=== PATIENT | female | born 1950 | race Caucasian/White ===

== ENCOUNTER 2016-03-31 09:28 | Emergency (ER) | payer OTHER ==
[2016-03-31 09:59] VITALS: BP 131/56
--- NOTE | 2016-03-31 10:19 | UC ---
Respiratory Complaint HPI - HPI Summary HPI Summary: 65 F w/ PMH of asthma and presents with cough. she has had the cough since beginning of March and was started on inhalers. Was placed on doxycycline said improved then when stopped got worst. [facility] and given doxycycline says sinus symptoms went away for 10 days but still coughing and wheezing. last dose 03/23. has been taking flonase, flovent. She denies any chest pain or SOB. She denies any fever or sinus congestion. - History of Current Complaint Chief Complaint: UC Stated Complaint: COUGH WITH ASHTMA Time Seen by Provider: 03/31/16 10:03 - Allergies/Home Medications Allergies/Adverse Reactions: Allergies Allergy/AdvReac Type Severity Reaction Status Date / Time Adhesive Tape Allergy Intermediate SKIN Verified 03/31/16 09:50 BLISTERS Cefaclor [From Ceclor] Allergy Intermediate Itching Verified 03/31/16 09:50 Codeine Allergy Intermediate FIELD MECHANICAL METER TESTER Verified 03/31/16 09:50 STIMULANT Sulfamethoxazole Allergy Intermediate Itching Verified 03/31/16 09:50 w/Trimethoprim [From Septra] Terconazole [From Terazol] Allergy Intermediate VAGINAL Verified 03/31/16 09:50 YEAST INFECTION Diclofenac [From Voltaren] Allergy Rash Verified 03/31/16 09:50 Salmeterol [From Advair] Allergy Rash Verified 03/31/16 09:50 DECONGESTANTS Allergy Intermediate FIELD MECHANICAL METER TESTER Uncoded 03/31/16 09:50 STIMULANT Home Medications: Home Medications Fluticasone NASAL SPRAY 50MCG* [Flonase NASAL SPRAY 50MCG*] 2 spray BOTH NARES DAILY 03/31/16 [History Confirmed 03/31/16] PMH/Surg Hx/FS Hx/Imm Hx Endocrine History Of: Denies: Diabetes, Thyroid Disease Cardiovascular History Of: Denies: Cardiac Disorders, Hypertension Respiratory History Of: Reports: Asthma Denies: COPD GI/ History Of: Denies: Ulcer - Surgical History Surgical History: Yes Surgery Procedure, Year, and Place: T&A 1962 - Family History Known Family History: Negative: Cardiac Disease - Social History Alcohol Use: None Substance Use Type: None Smoking Status (MU): Former Smoker Have You Smoked in the Last Year: No When Did the Patient Quit Smoking/Using Tobacco: 1990 - Immunization History Most Recent Influenza Vaccination: fall 2015 Most Recent Tetanus Shot: UTD Review of Systems Constitutional: Negative ENT: Negative Respiratory: Cough Cardiovascular: Negative Gastrointestinal: Negative All Other Systems Reviewed And Are Negative: Yes Physical Exam Triage Information Reviewed: Yes Appearance: Well-Appearing Vital Signs: Initial Vital Signs Temp 97.7 F 03/31/16 09:53 Pulse 67 03/31/16 09:53 Resp 16 03/31/16 09:53 BP 131/56 03/31/16 09:53 Pulse Ox 97 03/31/16 09:53 Vital Signs Reviewed: Yes Eyes: Positive: Conjunctiva Clear ENT: Positive: Normal ENT inspection, Pharynx normal, TMs normal Neck: Positive: Supple, Nontender, No Lymphadenopathy Respiratory: Positive: Chest non-tender, Lungs clear, Other: - neg egophony. Negative: Wheezing Cardiovascular: Positive: RRR UC Diagnostic Evaluation - Laboratory O2 Sat by Pulse Oximetry: 97 Respiratory Course/Dx - Course Course Of Treatment: 65F presents with cough for 3 weeks, has been using flovent , flonase, and inhaler, no sign of conslidation on exam and would expect symptoms to have gotten worst if has pneumonia, will had oral steriod and tessalon and explained bronchitis can last up to 4 weeks, advised to follow up with primary, patient agrees with plan - Differential Dx/Diagnosis Differential Diagnosis/HQI/PQRI: Bronchitis, Influenza, Lower Resp Infection Provider Diagnoses: bronchitis Discharge - Discharge Plan Condition: Stable Disposition: HOME Prescriptions: Benzonatate CAP* [Tessalon CAP*] 100 mg PO TID #21 cap predniSONE TAB* [Deltasone TAB*] 40 mg PO DAILY #5 tab Patient Education Materials: Acute Bronchitis (ED) Referrals: Dalila Sewell [Primary Care Provider] - Additional Instructions: Use inhaler every 4-6 hours as needed for cough Use Tessalon three times a day for cough Take steriod once a day for 5 days Continue flonase and flovent as prescribed Use humidifier or place warm bowls of water around the room Cough can last up to 4 weeks Follow up with primary care physician in 5 days Return to ED if develop chest pain or shortness of breath or any new or worsening symptoms
== END 2016-03-31 10:41 | disposition home or self-care (01) ==
LOC: UCEAST 09:28
DX: J45.909 Unspecified asthma, uncomplicated (principal); Z88.5 Allergy status to narcotic agent; Z88.1 Allergy status to other antibiotic agents; Z88.2 Allergy status to sulfonamides; Z88.8 Allergy status to other drugs, medicaments and biological substances; Z87.891 Personal history of nicotine dependence
CPT/HCPCS: 99212; G0463

== ENCOUNTER 2017-01-12 13:34 | Emergency (ER) | payer OTHER ==
--- NOTE | 2017-01-12 14:21 | UC ---
Respiratory Complaint HPI - History of Current Complaint Pain Intensity: 0 <Corbin Flower - Last Filed: 01/12/17 21:52> - HPI Summary HPI Summary: Pt presents with sinus congestion for 3 weeks. She was on a Zpak and felt better a few days after finishing the course. Now has continued sinus congestion , but has developed wheezing, SOB, and a cough. She uses at home flovent inhaler , and recently has started using her albuterol inhaler as well. Has been taking OTC cold medicine with no relief. Has felt feverish at times, but has not taken her temp. Denies chills, chest pain, ST, N/V/D/C. - History of Current Complaint Severity Initially: Mild Severity Currently: Moderate Character: Cough: Nonproductive Aggravating Factors: Deep Breaths Associated Signs And Symptoms: Positive: Fever, URI <Rogers Whitley - Last Filed: 01/12/17 21:58> - History of Current Complaint Chief Complaint: UCRespiratory Stated Complaint: ASTHMA Time Seen by Provider: 01/12/17 14:20 - Allergies/Home Medications Allergies/Adverse Reactions: Allergies Allergy/AdvReac Type Severity Reaction Status Date / Time Adhesive Tape Allergy Intermediate SKIN Verified 01/12/17 14:15 BLISTERS Cefaclor [From Ceclor] Allergy Intermediate Itching Verified 01/12/17 14:15 Codeine Allergy Intermediate LAUNDRY ROUTE DRIVER Verified 01/12/17 14:15 STIMULANT Sulfamethoxazole Allergy Intermediate Itching Verified 01/12/17 14:15 w/Trimethoprim [From Septra] Terconazole [From Terazol] Allergy Intermediate VAGINAL Verified 01/12/17 14:15 YEAST INFECTION Diclofenac [From Voltaren] Allergy Rash Verified 01/12/17 14:15 Salmeterol [From Advair] Allergy Rash Verified 01/12/17 14:15 DECONGESTANTS Allergy Intermediate LAUNDRY ROUTE DRIVER Uncoded 01/12/17 14:15 STIMULANT PMH/Surg Hx/FS Hx/Imm Hx Respiratory History: Asthma <Corbin Flower - Last Filed: 01/12/17 21:52> Previously Healthy: Yes Respiratory History: Asthma - Surgical History Surgical History: Yes Surgery Procedure, Year, and Place: T&A 1962 - Family History Known Family History: Negative: Cardiac Disease - Social History Occupation: Retired Lives: With Family Alcohol Use: None Substance Use Type: None Smoking Status (MU): Former Smoker Have You Smoked in the Last Year: No When Did the Patient Quit Smoking/Using Tobacco: 1990 - Immunization History Most Recent Influenza Vaccination: fall 2015 Most Recent Tetanus Shot: UTD <Rogers Whitley - Last Filed: 01/12/17 21:58> Review of Systems Constitutional: Fever Skin: Negative Eyes: Negative ENT: Sinus Congestion Respiratory: Shortness Of Breath, Cough Cardiovascular: Negative Gastrointestinal: Negative Neurological: Negative All Other Systems Reviewed And Are Negative: Yes <Rogers Whitley - Last Filed: 01/12/17 21:58> Physical Exam Vital Signs: Initial Vital Signs Temp 97.2 F 01/12/17 14:08 Pulse 85 01/12/17 14:08 Resp 18 01/12/17 14:08 BP 160/58 01/12/17 14:08 Pulse Ox 96 01/12/17 14:08 <Corbin Flower - Last Filed: 01/12/17 21:52> Triage Information Reviewed: Yes Appearance: Well-Appearing, Well-Nourished Vital Signs: Initial Vital Signs Temp 97.2 F 01/12/17 14:08 Pulse 85 01/12/17 14:08 Resp 18 01/12/17 14:08 BP 160/58 01/12/17 14:08 Pulse Ox 96 01/12/17 14:08 Vital Signs Reviewed: Yes Eyes: Positive: Conjunctiva Clear ENT: Positive: Normal ENT inspection, Hearing grossly normal, Pharynx normal, TMs normal, Uvula midline. Negative: Pharyngeal erythema, Nasal congestion, Nasal drainage, TM bulging, TM dull, TM red, Tonsillar swelling, Tonsillar exudate, Sinus tenderness Neck: Positive: Supple, Nontender, No Lymphadenopathy Respiratory: Positive: Chest non-tender, No respiratory distress, No accessory muscle use, Decreased breath sounds - Throughout, Wheezing - Throughout Cardiovascular: Positive: RRR, No Murmur, Pulses Normal Neurological: Positive: Alert Psychological: Positive: Age Appropriate Behavior <Rogers Whitley - Last Filed: 01/12/17 21:58> UC Diagnostic Evaluation - Laboratory O2 Sat by Pulse Oximetry: 96 <Rogers Whitley Last Filed: 01/12/17 21:58> Respiratory Course/Dx - Course Course Of Treatment: Nebulizer tx with albuterol was given - pt experienced moderate relief and was able to breathe easier. Lungs sounds improved with significantly less wheezing throughout. CXR negative. Use your at home albuterol inhaler 2 puffs every 4-6 hours for the next 3 days. Continue flovent as rx'd - Differential Dx/Diagnosis Differential Diagnosis/HQI/PQRI: Asthma, Bronchitis, CHF, Influenza, Sinusitis Provider Diagnoses: asthma exacerbation <Rogers Whitley - Last Filed: 01/12/17 21:58> Discharge <Corbin Flower - Last Filed: 01/12/17 21:52> <Rogers Whitley - Last Filed: 01/12/17 21:58> - Discharge Plan Condition: Stable Disposition: HOME Patient Education Materials: Asthma (ED) Referrals: Yannick ARZATE,Dalila Petty [Primary Care Provider] - Additional Instructions: 1) Continue using your flovent as prescribed. 2) Use the albuterol inhaler 2 puffs every 4 hours for the next 3 days 3) Plain Mucinex over the counter as directed. If you develop fever, worsening SOB, chest pain, new or worsening symptoms - please call our office or go to ED. Your blood pressure was high at today's visit - please see your PCP within 4 weeks for recheck and re-evaluation.
--- NOTE | 2017-01-12 14:51 | RAD ---
HISTORY: Shortness of breath COMPARISONS: February 01, 2015 VIEWS: 4: Frontal dual-energy and lateral views of the chest. FINDINGS: CARDIOMEDIASTINAL SILHOUETTE: The cardiomediastinal silhouette is normal. SARA: The sara are normal. PLEURA: The costophrenic angles are sharp. No pleural abnormalities are noted. LUNG PARENCHYMA: The lungs are clear. ABDOMEN: The upper abdomen is clear. There is no subphrenic gas. BONES AND SOFT TISSUES: Mild degenerative changes are noted OTHER: None. IMPRESSION: NO ACTIVE CARDIOPULMONARY DISEASE.
[2017-01-12] MEDS ORDERED: Albuterol (2.5 MG) 0.5 % CONC 2.5 MG/0.5 ML NEB.SOLN (ICU and ED only) INH ONE (15:09)
[2017-01-12] MEDS ORDERED: Albuterol 2.5 MG/3 ML NEB.SOL* (0.083%) INH ONE (15:15)
[2017-01-12 15:47] VITALS: BP 131/71
== END 2017-01-12 15:52 | disposition home or self-care (01) ==
LOC: UCEAST 13:34
DX: J45.901 Unspecified asthma with (acute) exacerbation (principal); Z88.1 Allergy status to other antibiotic agents; Z88.5 Allergy status to narcotic agent; Z88.2 Allergy status to sulfonamides; Z88.8 Allergy status to other drugs, medicaments and biological substances; Z88.6 Allergy status to analgesic agent; Z87.891 Personal history of nicotine dependence
CPT/HCPCS: 71020; 99212; G0463; J7611

== ENCOUNTER 2017-01-20 09:49 | Emergency (ER) | payer OTHER ==
[2017-01-20] MEDS ORDERED: Albuterol 2.5 MG/3 ML NEB.SOL* (0.083%) INH ONE (12:26)
--- NOTE | 2017-01-20 12:47 | RAD ---
HISTORY: Progressively worse cough COMPARISONS: January 12, 2017 VIEWS: 4: Frontal dual-energy and lateral views of the chest. FINDINGS: CARDIOMEDIASTINAL SILHOUETTE: The cardiomediastinal silhouette is normal. SARA: The sara are normal. PLEURA: The costophrenic angles are sharp. No pleural abnormalities are noted. LUNG PARENCHYMA: The lungs are clear. ABDOMEN: The upper abdomen is clear. There is no subphrenic gas. BONES AND SOFT TISSUES: No bone or soft tissue abnormalities are noted. OTHER: None. IMPRESSION: NO ACTIVE CARDIOPULMONARY DISEASE.
[2017-01-20 13:33] VITALS: BP 141/59
--- NOTE | 2017-01-25 21:56 | ED ---
Ruthann Page Gabriel, scribed for Poppy Bolanos MD on 01/20/17 at 1226 . Respiratory - HPI Summary HPI Summary: This patient is a 66 year old F presenting to [facility] with a chief complaint of a persistent cough, wheeze x approx 3 weeks. Seen in [facility] on 01/12. Pt has taken Mucinex since and has been taking albuterol inhaler 3 times daily. Also dx'd with strep throat at that time. Cough / wheeze symptoms are worse while lying down. Has completed azithromycin, not much better. Does not have a nebulizer at home. No rash. No sob / cp except with cough. No GI sx reported. No rash reported. - History of Current Complaint Chief Complaint: UCRespiratory Stated Complaint: WEEZING,COUGH Time Seen by Provider: 01/20/17 12:13 Hx Obtained From: Patient Onset/Duration: Still Present Timing: Constant Character: Wheezing, Cough (Nonproductive), Orthopnea - Allergy/Home Medications Allergies/Adverse Reactions: Allergies Allergy/AdvReac Type Severity Reaction Status Date / Time Adhesive Tape Allergy Intermediate SKIN Verified 01/20/17 10:04 BLISTERS Cefaclor [From Ceclor] Allergy Intermediate Itching Verified 01/20/17 10:04 Codeine Allergy Intermediate CATTLE DIPPER Verified 01/20/17 10:04 STIMULANT Sulfamethoxazole Allergy Intermediate Itching Verified 01/20/17 10:04 w/Trimethoprim [From Septra] Terconazole [From Terazol] Allergy Intermediate VAGINAL Verified 01/20/17 10:04 YEAST INFECTION Diclofenac [From Voltaren] Allergy Rash Verified 01/20/17 10:04 Salmeterol [From Advair] Allergy Rash Verified 01/20/17 10:04 DECONGESTANTS Allergy Intermediate CATTLE DIPPER Uncoded 01/20/17 10:04 STIMULANT Home Medications: Home Medications Guaifenesin 200 mg PO 01/20/17 [History] Pseudoephedrine-Guaifenesin [Mucinex D 60-600 mg] 1 tab PO 01/20/17 [History] PMH/Surg Hx/FS Hx/Imm Hx Previously Healthy: No Endocrine/Hematology History: Denies: Hx Diabetes, Hx Thyroid Disease Cardiovascular History: Denies: Hx Hypertension Respiratory History: Reports: Hx Asthma Denies: Hx Chronic Obstructive Pulmonary Disease (COPD) GI History: Denies: Hx Ulcer - Surgical History Surgery Procedure, Year, and Place: T&A 1962 Infectious Disease History: Yes Infectious Disease History: Reports: Hx Shingles - 12/2009 Denies: Hx Clostridium Difficile, Hx Hepatitis, Hx Human Immunodeficiency Virus (HIV), Hx of Known/Suspected MRSA, Hx Tuberculosis, History Other Infectious Disease, Traveled Outside the [place] in Last 30 Days - Family History Known Family History: Negative: Cardiac Disease - Social History Alcohol Use: None Substance Use Type: Reports: None Smoking Status (MU): Former Smoker Have You Smoked in the Last Year: No Review of Systems Constitutional: Negative Eyes: Negative ENT: Other - see hpi + congestion Cardiovascular: Negative Positive: Other - see hpi Gastrointestinal: Negative Genitourinary: Negative Musculoskeletal: Negative Skin: Negative Neurological: Negative Psychological: Normal All Other Systems Reviewed And Are Negative: Yes Physical Exam Triage Information Reviewed: Yes Vital Signs On Initial Exam: Initial Vitals Temp Pulse Resp BP Pulse Ox 97.5 F 86 18 145/67 97 01/20/17 10:00 01/20/17 10:00 01/20/17 10:00 01/20/17 10:00 01/20/17 10:00 Vital Signs Reviewed: Yes Appearance: Positive: Well-Nourished - sitting up. Conversing in full sentances. Looks tired but nad. Eyes: Positive: Normal ENT: Positive: TM dull, Uvula midline, Other - Tms dull bi laterally, Posterior pharynx mildly erythematous without sores, airway patent Neck: Positive: Supple, Nontender, No Lymphadenopathy Respiratory/Lung Sounds: Positive: Other - Bilateral rhonchi, exp wheeze R base. No rtx. BS present bilat. Cardiovascular: Positive: Normal - good general skin color, good capillary refill, RRR Abdomen Description: Positive: Nontender, No Organomegaly, Soft Bowel Sounds: Positive: Present Musculoskeletal: Positive: Normal, Strength/ROM Intact Neurological: Positive: Normal - nonfocal, grossly intact Psychiatric: Positive: Normal - conversing easily and appropriately Diagnostics - Vital Signs Vital Signs Temp Pulse Resp BP Pulse Ox 01/20/17 10:00 97.5 F 86 18 145/67 97 - Laboratory Lab Statement: Any lab studies that have been ordered have been reviewed, and results considered in the medical decision making process. - Radiology CXR Radiology Interpretation Completed By: Radiologist - No active cardiopulmonary disease. physician has reviewed this report and agrees. Disposition - Course Course Of Treatment: no new problems reported while in [facility]. Albuterol neb x 1. Reviewed chest xray report with pt. Sx are significant, at the very least + bronchitis with wheezing. Suspicious for subradiographic pneumonia. As such, will tx. Pt recently over the last several weeks and months has taken azithromycin, also pcn's. Has taken quinolones in the past without difficulty.Recommed f/u pcp. Encouraged to seek medical attention for worse or new problems in the meantime. Questions as posed answered to the best of my ability. Rx - see [employer], also handwritten rx #1 nebulizer Assessment/Plan: Bronchitis with wheezing. Possible early pneumonia - Diagnoses Provider Diagnoses: Bronchitis, Bronchospasm, Asthma Discharge - Discharge Plan Condition: Stable Disposition: HOME Prescriptions: Albuterol 2.5MG/3ML (0.083%)* [Ventolin 2.5 MG/3 ML NEB.MINERVA*] 2.5 mg INH Q6H PRN #1 box PRN Reason: Wheezing Ciprofloxacin TAB* [Cipro 500 MG TAB*] 500 mg PO BID #20 tab Patient Education Materials: Acute Bronchitis (ED), Bronchospasm (ED) Referrals: Yannick ARZATE,Dalila Petty [Primary Care Provider] - Additional Instructions: Follow up with primary care provider, if possible in the next week for recheck. Seek medical attention for worse or new problems in the meantime. The documentation as recorded by the Ruthann brooks Gabriel accurately reflects the service I personally performed and the decisions made by me, Poppy Bolanos MD.
== END 2017-01-20 13:43 | disposition home or self-care (01) ==
LOC: UCEAST 09:49
DX: J20.9 Acute bronchitis, unspecified (principal); J45.909 Unspecified asthma, uncomplicated
CPT/HCPCS: 71020; 99212; G0463

== ENCOUNTER 2017-07-08 15:37 | Emergency (ER) | payer OTHER ==
[2017-07-08 16:57] VITALS: BP 141/63
--- NOTE | 2017-07-08 18:19 | UC ---
Respiratory Complaint HPI - HPI Summary HPI Summary: Patient is a 66-year-old female with a history of sinusitis, pneumonia, bronchitis and asthma who presents to the with chief complaint of cough, congestion, sinus pressure and pain, right ear pain with intermittent dizziness upon turning her head to the right ear which she states she has had sick contacts with strep and endorses bilateral lymphadenopathy and is concerned over strep throat. She's leaving for vacation tomorrow and would like an antibiotic for her symptoms. Denies any copious drainage or mucopurulent production or discharge. Denies any fevers, sweats, chills. She has been using her Flovent more frequently. She has also been using Flonase. - History of Current Complaint Chief Complaint: UCGeneralIllness Stated Complaint: SINUS COMPLAINT Time Seen by Provider: 07/08/17 16:00 Hx Obtained From: Patient Hx Last Menstrual Period: post menopausal ?: No Onset/Duration: Sudden Onset Timing: Constant Severity Initially: Mild Severity Currently: Mild Pain Intensity: 0 Pain Scale Used: 0-10 Numeric Character: Cough: Nonproductive Associated Signs And Symptoms: Positive: Dizziness, URI, Nasal Congestion, Sinus Discomfort. Negative: Wheezing, Hemoptysis, Calf Pain, Calf Swelling, Hoarseness - Risk Factors Pulmonary Embolism Risk Factors: Negative Cardiac Risk Factors: Negative Pseudomonas Risk Factors: Negative Tuberculosis Risk Factors: Negative - Allergies/Home Medications Allergies/Adverse Reactions: Allergies Allergy/AdvReac Type Severity Reaction Status Date / Time diclofenac [From Voltaren] Allergy Severe Palpitation Verified 07/08/17 16:01 s Adhesive Tape Allergy Intermediate SKIN Verified 07/08/17 16:01 BLISTERS codeine Allergy Intermediate WRAPPER REWINDER Verified 07/08/17 16:01 stimulant cefaclor [From Ceclor] Allergy Itching Verified 07/08/17 16:01 fluticasone Allergy chest Verified 07/08/17 16:01 [From Advair Diskus] burning salmeterol Allergy chest Verified 07/08/17 16:01 [From Advair Diskus] burning Sulfa (Sulfonamide Allergy Itching Verified 07/08/17 16:01 Antibiotics) terconazole Allergy vaginal Verified 07/08/17 16:01 irritant DECONGESTANTS Allergy Intermediate WRAPPER REWINDER Uncoded 07/08/17 16:01 STIMULANT PMH/Surg Hx/FS Hx/Imm Hx Previously Healthy: Yes - Surgical History Surgical History: Yes Surgery Procedure, Year, and Place: T&A 1962 - Family History Known Family History: Negative: Cardiac Disease - Social History Alcohol Use: None Substance Use Type: None Smoking Status (MU): Former Smoker Have You Smoked in the Last Year: No When Did the Patient Quit Smoking/Using Tobacco: 1990 - Immunization History Most Recent Influenza Vaccination: fall 2015 Most Recent Tetanus Shot: UTD Review of Systems Constitutional: Negative Skin: Negative Eyes: Negative ENT: Sore Throat, Nasal Discharge, Sinus Congestion, Sinus Pain/Tenderness Respiratory: Cough Cardiovascular: Negative Musculoskeletal: Negative Neurological: Negative Is Patient Immunocompromised?: No All Other Systems Reviewed And Are Negative: Yes Physical Exam Triage Information Reviewed: Yes Appearance: Well-Appearing, No Pain Distress, Well-Nourished Vital Signs: Initial Vital Signs Temp 98 F 07/08/17 15:49 Pulse 91 07/08/17 15:49 Resp 16 07/08/17 15:49 BP 155/62 07/08/17 15:49 Pulse Ox 96 07/08/17 15:49 Vital Signs Reviewed: Yes Eye Exam: Normal Eyes: Positive: Conjunctiva Clear ENT: Positive: Pharynx normal, Nasal congestion, Sinus tenderness, Uvula midline. Negative: Pharyngeal erythema, Nasal drainage, TM bulging, TM dull, TM red, Tonsillar swelling, Tonsillar exudate, Dental tenderness Neck exam: Normal Neck: Positive: Supple, No Lymphadenopathy Respiratory Exam: Normal Respiratory: Positive: Chest non-tender Cardiovascular Exam: Normal Cardiovascular: Positive: RRR Musculoskeletal Exam: Normal Musculoskeletal: Positive: Strength Intact Neurological Exam: Normal Neurological: Positive: Alert Psychological: Positive: Normal Response To Family, Age Appropriate Behavior Skin Exam: Normal UC Diagnostic Evaluation - Laboratory O2 Sat by Pulse Oximetry: 96 Respiratory Course/Dx - Course Course Of Treatment: Patient evaluated for acute bronchitis versus sinusitis. She is having ceased tenderness to the maxillary sinuses as well as chest pain with cough only. TMs without erythema or effusion. There is no fluctuation to the maxillary sinuses. Lungs are clear to auscultation bilaterally. Regular rate and rhythm. I have offered a azithromycin antibiotic as well as Flonase. She is also given meclizine for any dizziness. She will not take the antibiotic unless she expresses worsening symptoms, but I have agreed to give it to her at this point due to her leaving for vacation tomorrow. She is okay with this plan at discharge. She will follow back up with her primary for any worsening or changing symptoms. She continues to be afebrile. - Differential Dx/Diagnosis Provider Diagnoses: Acute Bronchitis Discharge - Sign-Out/Discharge Documenting (check all that apply): Discharge/Admit/Transfer - Discharge Plan Condition: Stable Disposition: HOME Prescriptions: Azithromyxin LIDIA (NF) [Z-Lidia (Zithromax) 250 mg tabs #6] 2 tab PO .TODAY, THEN 1 DAILY #6 tab Meclizine TAB* [Antivert 12.5 TAB*] 12.5 mg PO TID PRN #12 tab MDD 3 PRN Reason: Dizziness Patient Education Materials: Acute Bronchitis (ED), Dizziness (ED) Referrals: Yannick ARZATE,Dalila Petty [Primary Care Provider] - Additional Instructions: Azithromycin as prescribed if needed Meclizine for any dizziness Continue with your allergy medications Flonase may be used for nasal congestion Continue with mucinex for any chest congestion and cough - Billing Disposition and Condition Condition: STABLE Disposition: HOME
== END 2017-07-08 16:49 | disposition home or self-care (01) ==
LOC: UCEAST 15:37
DX: J20.9 Acute bronchitis, unspecified (principal); R42 Dizziness and giddiness; R09.81 Nasal congestion; Z88.1 Allergy status to other antibiotic agents; Z88.5 Allergy status to narcotic agent; Z88.2 Allergy status to sulfonamides; Z88.8 Allergy status to other drugs, medicaments and biological substances; Z91.048 Other nonmedicinal substance allergy status; Z87.891 Personal history of nicotine dependence
CPT/HCPCS: 87651; 99212; G0463

== ENCOUNTER 2017-12-27 13:25 | Emergency (ER) | payer OTHER ==
[2017-12-27 13:43] VITALS: BP 122/58
--- NOTE | 2017-12-27 13:58 | UC ---
Truncal Trauma HPI - HPI Summary HPI Summary: slipped on boxes and fell l7 days ago injuring L ribs, she heard a "pop". was able to ambulate immediately after fall but L rib pain persists - History Of Current Complaint Chief Complaint: UCBackPain Stated Complaint: FELL PAIN IN RIB AREA Time Seen by Provider: 12/27/17 13:45 Hx Obtained From: Patient Hx Last Menstrual Period: post menopausal ?: No Onset/Duration: Sudden Onset Severity Initially: Severe Severity Currently: Moderate Pain Intensity: 7 Mechanism Of Injury: Fall From A Standing Position Aggravating Factor(s): Deep Breathing, Other - pushing on area Alleviating factor(s): Rest - Allergies/Home Medications Allergies/Adverse Reactions: Allergies Allergy/AdvReac Type Severity Reaction Status Date / Time diclofenac [From Voltaren] Allergy Severe Palpitation Verified 12/27/17 13:34 s Adhesive Tape Allergy Intermediate SKIN Verified 12/27/17 13:34 BLISTERS codeine Allergy Intermediate HEAD LINEMAN Verified 12/27/17 13:34 stimulant cefaclor [From Ceclor] Allergy Itching Verified 12/27/17 13:34 fluticasone Allergy chest Verified 12/27/17 13:34 [From Advair Diskus] burning salmeterol Allergy chest Verified 12/27/17 13:34 [From Advair Diskus] burning Sulfa (Sulfonamide Allergy Itching Verified 12/27/17 13:34 Antibiotics) terconazole Allergy vaginal Verified 12/27/17 13:34 irritant DECONGESTANTS Allergy Intermediate HEAD LINEMAN Uncoded 12/27/17 13:34 STIMULANT Home Medications: Home Medications Ibuprofen [Advil] 600 mg PO TID PRN 12/27/17 [History Confirmed 12/27/17] PMH/Surg Hx/FS Hx/Imm Hx Previously Healthy: Yes Respiratory History: Asthma - Surgical History Surgical History: Yes Surgery Procedure, Year, and Place: T&A 1962. hysteroscopy, D & C- 2016 - Family History Known Family History: Negative: Cardiac Disease - Social History Occupation: Unemployed Alcohol Use: None Substance Use Type: None Smoking Status (MU): Former Smoker Have You Smoked in the Last Year: No When Did the Patient Quit Smoking/Using Tobacco: 1990 - Immunization History Most Recent Influenza Vaccination: fall 2015 Most Recent Tetanus Shot: UTD Review of Systems Constitutional: Negative Respiratory: Negative Cardiovascular: Negative Musculoskeletal: Other: - L rib pain Neurological: Negative Is Patient Immunocompromised?: No All Other Systems Reviewed And Are Negative: Yes Physical Exam Triage Information Reviewed: Yes Appearance: Well-Appearing, No Pain Distress, Obese Vital Signs: Initial Vital Signs Temp 98.2 F 12/27/17 13:36 Pulse 91 12/27/17 13:36 Resp 20 12/27/17 13:36 BP 122/58 12/27/17 13:36 Pulse Ox 97 12/27/17 13:36 Vital Signs Reviewed: Yes Neck exam: Normal Respiratory Exam: Normal Respiratory: Positive: Lungs clear Cardiovascular Exam: Normal Abdominal Exam: Normal Abdomen Description: Positive: Nontender, No Organomegaly, Soft Musculoskeletal Exam: Normal Musculoskeletal: Positive: Other: - point tenderness anterior L 5-6 ribs Neurological Exam: Normal Psychological Exam: Normal Skin Exam: Normal - no bruising Diagnostics - Radiology No standard instances Radiology Interpretation Completed By: Radiologist - possible fx L 8th rib Truncal Trauma Course/Dx - Differential Dx/Diagnosis Differential Diagnosis/HQI/PQRI: Chest Wall Contusion, Rib Fracture Provider Diagnoses: fractured L 8th rib Discharge - Sign-Out/Discharge Documenting (check all that apply): Patient Departure All imaging exams completed and their final reports reviewed: Yes - Discharge Plan Condition: Stable Disposition: HOME Patient Education Materials: Rib Fracture (ED) Referrals: Dalila Sewell [Primary Care Provider] - 1 Week (if no better) Additional Instructions: activity as tolerated take deep breaths every 15 minutes ibuprofen as directed for pain - Billing Disposition and Condition Condition: STABLE Disposition: Home
--- NOTE | 2017-12-27 14:24 | RAD ---
INDICATION: Left rib injury. TECHNIQUE: 4 views of the left ribs were obtained. FINDINGS: There is an area of cortical irregularity present in the lateral left eighth rib possibly representing a nondisplaced fracture. No other fractures are seen. IMPRESSION: POSSIBLE NONDISPLACED FRACTURE OF THE LEFT LATERAL EIGHTH RIB.
== END 2017-12-27 14:54 | disposition home or self-care (01) ==
LOC: UCEAST 13:25
DX: S22.32XA Fracture of one rib, left side, initial encounter for closed fracture (principal); J45.909 Unspecified asthma, uncomplicated; Z88.6 Allergy status to analgesic agent; Z88.5 Allergy status to narcotic agent; Z88.1 Allergy status to other antibiotic agents; Z91.048 Other nonmedicinal substance allergy status; Z88.8 Allergy status to other drugs, medicaments and biological substances; Z88.2 Allergy status to sulfonamides; Z87.891 Personal history of nicotine dependence; W22.8XXA Striking against or struck by other objects, initial encounter; Y92.9 Unspecified place or not applicable
CPT/HCPCS: 99211; G0463